=== PATIENT | male | born 2000 | race Caucasian/White ===

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

== ENCOUNTER → 2023-10-16 | Outpatient (CLI) | payer OTHER ==
--- NOTE | 2023-10-24 13:09 | CT ---
EXAMINATION TYPE: CT abdomen w con CT DLP: 941.0 mGycm, Automated exposure control for dose reduction was used. DATE OF EXAM: 10/16/2023 4:17 PM COMPARISON: None. CLINICAL INDICATION:Male, 23 years old with history of R10.9 ABDOMINAL PAIN; RLQ abdominal pain x 6 m onths TECHNIQUE: Axial CT of the abdomen. Sagittal and coronal reformats were created [facility]. Contrast used:100 mL of Isovue 300 with IV Contrast, (none if empty) Oral contrast used: with Oral Contrast (none if empty) FINDINGS: LOWER CHEST: Unremarkable ABDOMEN LIVER: Unremarkable GALLBLADDER AND BILE DUCTS: Unremarkable gallbladder. No biliary ductal dilatation. PANCREAS: Unremarkable. SPLEEN: Unremarkable. ADRENAL GLANDS: Unremarkable. KIDNEYS AND URETERS: Kidneys enhance symmetrically. No evidence of hydronephrosis or visible renal ca lculus. The upper ureters are unremarkable. A 12 mm cyst of the upper pole left kidney. STOMACH AND BOWEL: Contrast traverses the stomach and visualized small bowel loops without evidence o f obstruction. The visualized portions of the colon demonstrate a small to moderate amount of stool t hroughout without evidence of focal acute abnormality. The appendix is not seen, could lie beyond the scope of this study. PERITONEUM/RETROPERITONEUM: No evidence of pneumoperitoneum or free fluid. VASCULATURE: Aorta and major branches are grossly unremarkable. No AAA. Portal veins are enhancing. Splenic vein is patent. Note is made of multiple small collateral vessels medial and posterior to t he left kidney. LYMPH NODES: No gross evidence for lymphadenopathy. SOFT TISSUE/ABDOMINAL WALL: Unremarkable MUSCULOSKELETAL: No acute osseous abnormalities. Mild degenerative disk disease L5-S1 with small dis c osteophyte complex causing mild/moderate neural foraminal stenoses and mild canal stenosis. IMPRESSION: No acute finding in the abdomen to explain the patient's reported symptoms.
== END | disposition home or self-care (01) ==
LOC: RADCTMAIN 15:29
PROVIDERS: ATTEND Internal Medicine Geriatric Medicine
DX: R10.9 Unspecified abdominal pain (principal)
CPT/HCPCS: 74160; Q9967

== ENCOUNTER → 2023-12-28 | Outpatient (CLI) | payer OTHER ==
--- NOTE | 2023-12-28 10:34 | US ---
EXAMINATION TYPE: US abdomen APPY DATE OF EXAM: 12/28/2023 COMPARISON: CT 10/16/2023 CLINICAL INDICATION: Male, 23 years old with history of R10.9 ABD PAIN; Pain x 2 months within bilate ral flank and RLQ. No fevers, no elevated WBC per patient. TECHNIQUE: Multiple sonographic images of the right lower quadrant were obtained with graded compress ion. FINDINGS: APPENDIX Appendix was not visualized by ultrasound. Is the appendix seen in its entirety from the proximal cecum to distal end: no Is the appendix compressible: n/a Does the appendix wall appear hypervascular: n/a Is an appendicolith present: n/a Is there inflammatory changes or free fluid present: None seen ROLL LINE OPERATOR NOTES: Limited exam. Appendix not seen. IMPRESSION: Nonvisualization of the appendix in the right lower quadrant. This does not exclude diagnosis of acut e appendicitis.
--- NOTE | 2023-12-28 11:07 | US ---
EXAMINATION TYPE: US abdomen complete DATE OF EXAM: 12/28/2023 COMPARISON: CT 10/16/2023 CLINICAL INDICATION: Male, 23 years old with history of R10.9 ABD PAIN; Pain within bilateral flank a nd RLQ x 2 months. TECHNIQUE: Multiple sonographic images of the abdomen are obtained. FINDINGS: EXAM MEASUREMENTS: Liver Length: 17.3 cm Gallbladder Wall: 0.21 cm CBD: 0.33 cm Spleen: 11.5 cm Right Kidney: 12.9 x 5.0 x 4.5 cm Left Kidney: 12.1 x 5.1 x 5.1 cm NON DESTRUCTIVE TESTING SCIENTIST NOTES: Exam is limited due to gas. Pancreas: Tail was not well seen. Liver: Measures upper limits Gallbladder: Appears anechoic. Evidence for sonographic Alvarez's sign: No CBD: Appears wnl Spleen: Appears wnl Right Kidney: Slightly enlarged. No hydronephrosis or masses seen Left Kidney: Questionable complex area seen at mid measurin.4 x 1.4 x 1.3 cm. Upper IVC: Appears wnl Abd Aorta: Appears wnl IMPRESSION: 1. No evidence for obstructive uropathy. 2. Left mid kidney probable dromedary hump. 3. Left renal cyst seen on CT not appreciated.
== END | disposition home or self-care (01) ==
LOC: RADUSWWP 08:09
PROVIDERS: ATTEND Internal Medicine Geriatric Medicine
DX: N28.1 Cyst of kidney, acquired (principal); N28.89 Other specified disorders of kidney and ureter; R10.31 Right lower quadrant pain
CPT/HCPCS: 76700; 76705

== ENCOUNTER 2024-06-27 10:52 | Emergency (ER) | payer OTHER ==
[2024-06-27 11:11] VITALS: TEMP 98.6
[2024-06-27] MEDS: methocarbamoL 500 MG TAB PO STA (11:32)
[2024-06-27] MEDS: KETOROLAC 15 MG/ML 1 ML VIAL IM STA (11:32)
--- NOTE | 2024-06-27 11:32 | ED ---
Back Pain HPI - General Chief Complaint: Back Pain/Injury Stated Complaint: Lower back pain Time Seen by Provider: 06/27/24 11:07 Source: patient, RN notes reviewed Mode of arrival: ambulatory Limitations: no limitations - History of Present Illness Initial Comments: This is a 24-year-old male who presents to the emergency department for low back pain. Patient went to lift an air conditioner 6 days ago and was fine initially. However, the following day started to develop severe pain in the center of his lower back. Reports a history of spinal stenosis and degenerative disc disease. States that he has thrown out his back out before and done fine with just resting and conservative measures. However, the pain has continued to get worse. Reports some radiation down the legs. Denies any loss of bowel/bladder control or saddle anesthesia. He went to [facility] 2 days ago and felt better after receiving Toradol. He was given a prescription for naproxen and Flexeril, but has not gotten any relief with those. MD Complaint: back pain - Related Data Previous Rx's Medication Instructions Recorded Penicillin V Potassium [Pen Vee K] 500 mg PO Q6H 10 Days tablet 09/08/18 Ketorolac [Toradol] 10 mg PO Q6HR PRN #15 tab 06/27/24 methocarbamoL [Robaxin-750] 1,500 mg PO TID PRN #30 tab 06/27/24 Allergies Allergy/AdvReac Type Severity Reaction Status Date / Time codeine Allergy Unknown Verified 06/27/24 11:11 Review of Systems ROS Statement: Those systems with pertinent positive or pertinent negative responses have been documented in the HPI. ROS Other: All systems not noted in ROS Statement are negative. Past Medical History Past Medical History: Blood Disorder Additional Past Medical History / Comment(s): blood clotting disorder- protein C deficancy History of Any Multi-Drug Resistant Organisms: None Reported Past Surgical History: No Surgical Hx Reported Past Psychological History: ADD/ADHD Past Alcohol Use History: None Reported Past Drug Use History: None Reported General Exam Limitations: no limitations General appearance: alert, in no apparent distress Head exam: Present: atraumatic, normocephalic, normal inspection Respiratory exam: Present: normal lung sounds bilaterally. Absent: respiratory distress, wheezes, rales, rhonchi, stridor Cardiovascular Exam: Present: regular rate, normal rhythm, normal heart sounds. Absent: systolic murmur, diastolic murmur, rubs, gallop, clicks Back exam: Present: other (Tenderness over the center of the lower lumbar spine) Neurological exam: Present: alert, oriented X3, CN II-XII intact Psychiatric exam: Present: normal affect, normal mood Skin exam: Present: warm, dry, intact, normal color. Absent: rash Course Vital Signs 06/27/24 06/27/24 11:08 12:31 Temperature 98.6 F Pulse Rate 138 H 98 Respiratory 16 17 Rate Blood Pressure 135/81 119/77 O2 Sat by Pulse 99 99 Oximetry Medical Decision Making - Medical Decision Making This is a 24 year old male who presents to the emergency department for lower back pain. Was pt. sent in by a medical professional or institution? @ -No Did you speak to anyone other than the patient for history? @ -No Did you review nursing and triage notes? @ -Yes, and I agree, it is accurate with regards to the patient's symptoms. Were old charts reviewed? @ -No Differential Diagnosis? @ -Differential Back Pain: Strain, zoster, cauda equina syndrome, epidural abscess, vertebral osteomyelitis, discitis, fracture, subluxation, disc herniation, DJD, spinal stenosis, dissection, AAA, pancreatitis, peptic ulcer disease, pyelonephritis, kidney stone, this is not meant to be an all-inclusive list. EKG interpreted by me (3pts min.)? @ -Not obtained X-rays interpreted by me (1pt min.)? @ -X-ray of the lumbar spine obtained. My interpretation identifies no acute fractures. CT interpreted by me (1pt min.)? @ -Not obtained U/S interpreted by me (1pt. min.)? @ -Not obtained What testing was considered but not performed? (CT, X-rays, U/S, labs)? Why? @ -None What meds were considered but not given? Why? @ -Lidocaine patches, however patient declined as they have not been effective at home. Did you discuss the management of the patient with other professionals? @ -No Did you reconcile home meds? @ -No Was smoking cessation discussed for >3mins.? @ -No Was critical care preformed (if so, how long)? @ -No Were there social determinants of health that impacted care today? How? (H omelessness, low income, unemployed, alcoholism, drug addiction, transportation, low edu. Level, literacy, decrease access to med. care, detention, rehab)? @ -No Was there de-escalation of care discussed even if they declined? (Discuss DNR or withdrawal of care, Hospice)? @ -No What co-morbidities impacted this encounter? (DM, HTN, Smoking, COPD, CAD, Cancer, CVA, Hep., AIDS, mental health diagnosis, sleep apnea, morbid obesity)? @ -DDD, spinal stenosis Was patient admitted / discharged? @ -Discharged. X-ray of the lumbar spine obtained revealing no acute process. Symptoms likely related to a muscular strain. Pain was managed in the emergency department. Patient had no red flag signs or symptoms such as loss of bowel/bladder control or saddle anesthesia. Advised he look into chiropractors and he was also given follow-up for orthopedic spine specialists. Prescription for Toradol and Robaxin provided to see if that is more effective. Advised to avoid taking this with the naproxen and Flexeril and to take one or the other. Patient discharged home in stable condition. Advised close follow-up with his PCP. Case discussed with ED attending Dr. Hester. Return precautions reviewed in depth, the patient is instructed to return to the emergency department with any new, worsening, or concerning symptoms. Patient verbalized understanding. Undiagnosed new problem with uncertain prognosis? @ -None Drug Therapy requiring intensive monitoring for toxicity (Heparin, Nitro, Insulin, Cardizem)? @ -None Were any procedures done? @ -None Diagnosis/symptom? @ -Low back strain Acute, or Chronic, or Acute on Chronic? @ -Acute Uncomplicated (without systemic symptoms) or Complicated (systemic symptoms)? @ -Uncomplicated Side effects of treatment? @ -None Exacerbation, Progression, or Severe Exacerbation] @ -Not applicable Poses a threat to life or bodily function? @ -The pain may limit his ability to function for the meantime - Radiology Data Radiology results: report reviewed, image reviewed Disposition Clinical Impression: Strain of lumbar region Disposition: HOME SELF-CARE Instructions (If sedation given, give patient instructions): Acute Low Back Pain (ED) Additional Instructions: Return to the emergency department with any new, worsening, or concerning symptoms. Take the Toradol with Tylenol as needed for pain relief. If you choose to take the Toradol, do not take any other anti-inflammatories such as ibuprofen, take one or the other. Try taking the Robaxin in place of the Flexer il to see if it is more effective. You can look into local chiropractors as well as contact the spine specialists listed below for a follow-up appointment and further evaluation of your ongoing symptoms. Follow up with your primary care provider in 1-2 days. Prescriptions: methocarbamoL [Robaxin-750] 1,500 mg PO TID PRN #30 tab PRN Reason: Pain Ketorolac [Toradol] 10 mg PO Q6HR PRN #15 tab PRN Reason: Pain Is patient prescribed a controlled substance at d/c from ED?: No Referrals: Fernando Martinez MD [Primary Care Provider] - 1-2 days Wyatt Hendrickson DO [Doctor of Osteopathic Medicine] - 1-2 days Christiano Cunha DO [Doctor of Osteopathic Medicine] - 1-2 days Time of Disposition: 12:32
[2024-06-27] MEDS: DEXAMETHASONE SOD PHOSPHATE 10 MG/ML 1 ML VIAL IM STA (11:34)
--- NOTE | 2024-06-27 12:18 | XR ---
EXAMINATION TYPE: XR lumbar spine 2 or 3V DATE OF EXAM: 06/27/2024 12:04 PM CLINICAL INDICATION: Male, 24 years old with history of Pain; COMPARISON: None TECHNIQUE: XR lumbar spine 2 or 3V - Frontal, lateral and coned in L5-S1 lateral views of the spine. FINDINGS: No evidence of any acute osseous pathology. No evidence of loss of vertebral body height i s seen. There is normal alignment of the lumbar vertebral bodies. No significant degeneration changes throughout the spine. IMPRESSION: 1. No acute fracture. [facility], , 06/27/2024 12:16 PM
[2024-06-27 12:32] VITALS: BP 119/77; PULSE 98; RESP 17
== END 2024-06-27 13:35 | disposition home or self-care (01) ==
LOC: EC 10:52
DX: M54.50 Low back pain, unspecified
CPT/HCPCS: 72100; 96372; 99283